=== PATIENT | male | born 1980 | race African-American/Black ===

== ENCOUNTER 2019-11-28 23:19 | Inpatient (IN) ==
[2019-11-29] MEDS ORDERED: INSULIN REGULAR DRIP 100 ML IV PRN (00:40)
[2019-11-29 01:05] LABS: ABG Base Excess -24.5 MMOL/L (-2.5-2.5); ABG HCO3 2.7 MMOL/L (20-26); ABG Oxygen Saturation 98.7 % (95-100); ABG PO2 146.2 MM HG (80-95); Allen Test Positive; Pt O2 Delivery Device Room Air
[2019-11-29 01:07] LABS: ABG PCO2 9.1 MM HG (35-48); ABG PH 7.094 (7.35-7.45)
[2019-11-29] MEDS ORDERED: SODIUM BICARBONATE 50 MEQ/50 ML VIAL IV ONE ×2 (01:18)
[2019-11-29] MEDS ORDERED: SODIUM CHLORIDE 0.9% 1,000 ML IV ONE ×2 (01:18→02:13)
[2019-11-29 01:39] LABS: Basophils % 0.3 % (0.0-0.8); Hematocrit 44.5 VOL% (42.0-52.0); Hemoglobin 14.4 GM/DL (14.0-18.0); Immature Granulocytes % 1.7 %; Immature Granulocytes Absolute 0.26 #; Lymphocytes # 2.3 10*3/uL (1.4-4.0); Lymphocytes % 15.5 % (21.2-54.2); Mean Corpuscular HGB Conc 32.4 GM/DL (32-36); Mean Corpuscular Volume 95.1 FL (87-102); Mean Platelet Volume 12.6 FL (9.6-12.0); Neutrophils % 75.5 % (38.7-73.9); Platelet Count 111 T/CUMM (130-400); Red Blood Count 4.68 MC/CUMM (3.8-5.5); Red Cell Distribution Width 12.7 % (9.3-17.3); White Blood Count 15.1 T/CUMM (4-12)
[2019-11-29 01:46] LABS: Calcium 8.4 MG/DL (8.5-10.1); Osmolality,Calculated 294.2 MOS/KG (273-304); Risk Ratio 2.92
[2019-11-29] MEDS ORDERED: DEXTROSE 50% 25 GM/50 ML VIAL IV PRN ×2 (02:13)
[2019-11-29] MEDS ORDERED: SODIUM BICARB INJ 100 MEQ in STERILE WATER INJ 400 ML IV PRN (02:13)
[2019-11-29] MEDS ORDERED: SODIUM PHOSPHATE INJ 16.3 MMOL in SODIUM CHLORIDE 0.9% 250 ML IV PRN (02:13)
[2019-11-29] MEDS ORDERED: MAGNESIUM SULF RIDER 2 GM in PREMIX 1 EACH IV PRN (02:13)
[2019-11-29] MEDS ORDERED: MAGNESIUM SULF RIDER 4 GM in PREMIX 1 EACH IV PRN (02:13)
[2019-11-29] MEDS ORDERED: INSULIN REGULAR 100 UNIT/ML IV ONE (02:30)
[2019-11-29] MEDS: SODIUM CHLORIDE 0.9% 1,000 ML IV SCH ×5 (02:36→10:50)
[2019-11-29 02:44] LABS: ABG Base Excess -19.5 MMOL/L (-2.5-2.5); ABG HCO3 10.7 MMOL/L (20-26); ABG Oxygen Saturation 99.3 % (95-100); ABG PH 7.264 (7.35-7.45); ABG TCO2 5.7 MMOL/L (23-27); Allen Test Positive
[2019-11-29 02:46] LABS: ABG PCO2 14.2 MM HG (35-48)
[2019-11-29] MEDS: ONDANSETRON 4 MG/2 ML VIAL IV PRN ×2 (04:30→11:55)
[2019-11-29] MEDS ORDERED: ONDANSETRON 4 MG/2 ML VIAL ONE (04:32)
[2019-11-29 05:31] LABS: Osmolality,Calculated 286.4 MOS/KG (273-304)
[2019-11-29 05:35] LABS: Amorphous Crystals,Urine Occasional /HPF (Few); Apearance,Urine CLEAR (Clear); Bacteria,Urine Occasional /HPF (Few); Bilirubin,Urine Negative (Negative); Blood, Urine Moderate mg/dL (Negative); Glucose,Urine (UA) >=500 mg/dL (Negative); Ketones,Urine 80 mg/dL (Negative); Mucus,Urine Occasional /LPF (Occasional); Nitrite,Urine Negative (Negative); Protein,Urine 30 MG/DL; RBC,Urine 1 /HPF (0-4); Urine Color Straw (Yellow); Urine Specific Gravity 1.018 (1.001-1.035); Urine Urobilinogen < 2.0 EU/DL (0.2-1.0); WBC,Urine 1 /HPF (0-6)
[2019-11-29 06:12] LABS: Basophils % 0.1 % (0.0-0.8); Hematocrit 39.9 VOL% (42.0-52.0); Hemoglobin 12.9 GM/DL (14.0-18.0); Immature Granulocytes % 1.1 %; Lymphocytes # 1.3 10*3/uL (1.4-4.0); Lymphocytes % 14.7 % (21.2-54.2); Mean Corpuscular HGB Conc 32.3 GM/DL (32-36); Mean Corpuscular Volume 94.5 FL (87-102); Mean Platelet Volume 12.7 FL (9.6-12.0); Monocytes % 7.5 % (1.7-12.7); Neutrophils % 76.6 % (38.7-73.9); Platelet Count 97 T/CUMM (130-400); Red Blood Count 4.22 MC/CUMM (3.8-5.5); Red Cell Distribution Width 12.6 % (9.3-17.3); White Blood Count 8.7 T/CUMM (4-12)
[2019-11-29 06:22] LABS: Burr Cells Slight; Hypochromasia Slight; Microcytosis Slight
[2019-11-29 06:24] LABS: Platelet Estimate Decreased
[2019-11-29] MEDS: DEXT 5% NACL 0.45% KCL 20 MEQ 20 MEQ/1,000 ML BAG IV SCH ×2 (08:15→12:21)
[2019-11-29 09:54] LABS: Calcium 8.3 MG/DL (8.5-10.1); Osmolality,Calculated 284.4 MOS/KG (273-304)
[2019-11-29] MEDS ORDERED: INSULIN NPH/REGULAR 70/30 100 UNIT/ML SUBCUT ONE (11:14)
[2019-11-29] MEDS: LACTATED RINGERS 1,000 ML IV SCH ×3 (11:51→21:40)
[2019-11-29 12:21] LABS: Allen Test Positive
[2019-11-29 12:22] LABS: ABG Base Excess -8.9 MMOL/L (-2.5-2.5); ABG HCO3 14.3 MMOL/L (20-26); ABG Oxygen Saturation 98.7 % (95-100); ABG PCO2 24.3 MM HG (35-48); ABG PH 7.389 (7.35-7.45); ABG PO2 148.1 MM HG (80-95); ABG TCO2 15.1 MMOL/L (23-27)
[2019-11-29] MEDS: INSULIN LISPRO 100 UNIT/ML SUBCUT SCH ×3 (12:23→21:04)
[2019-11-29] MEDS ORDERED: INSULIN NPH/REGULAR 70/30 100 UNIT/ML SUBCUT SCH (16:30)
[2019-11-29 17:46] LABS: Calcium 8.8 MG/DL (8.5-10.1); Osmolality,Calculated 285.5 MOS/KG (273-304)
[2019-11-29] MEDS: POTASSIUM CHLORIDE RIDER 10 MEQ in PREMIX 1 EACH IV PRN ×2 (18:51→23:05)
[2019-11-29] MEDS ORDERED: SODIUM CHLORIDE 0.45% 1,000 ML IV SCH (19:13)
[2019-11-30] MEDS: POTASSIUM CHLORIDE RIDER 10 MEQ in PREMIX 1 EACH IV PRN ×4 (01:05→07:46)
[2019-11-30] MEDS: INSULIN LISPRO 100 UNIT/ML SUBCUT SCH ×4 (01:15→11:15)
[2019-11-30] MEDS: LACTATED RINGERS 1,000 ML IV SCH ×2 (04:35→11:15)
[2019-11-30 04:51] LABS: Calcium 8.9 MG/DL (8.5-10.1); Osmolality,Calculated 281.3 MOS/KG (273-304)
[2019-11-30] MEDS ORDERED: INSULIN NPH/REGULAR 70/30 100 UNIT/ML SUBCUT SCH (07:30)
[2019-11-30 07:50] LABS: Hematocrit 34.9 VOL% (42.0-52.0); Hemoglobin 11.3 GM/DL (14.0-18.0); Immature Granulocytes % 0.4 %; Immature Granulocytes Absolute 0.02 #; Lymphocytes # 0.8 10*3/uL (1.4-4.0); Lymphocytes % 14.6 % (21.2-54.2); Mean Corpuscular HGB Conc 32.4 GM/DL (32-36); Mean Corpuscular Volume 93.6 FL (87-102); Mean Platelet Volume 12.4 FL (9.6-12.0); Monocytes % 9.1 % (1.7-12.7); Neutrophils % 75.9 % (38.7-73.9); Platelet Count 75 T/CUMM (130-400); Red Blood Count 3.73 MC/CUMM (3.8-5.5); Red Cell Distribution Width 12.9 % (9.3-17.3); White Blood Count 5.6 T/CUMM (4-12)
[2019-11-30 08:08] LABS: Hypochromasia Slight; Microcytosis Slight; Ovalocytes Slight; Platelet Estimate Decreased
== END 2019-11-30 15:40 | disposition home or self-care (01) | DRG 639 ==
LOC: SUATTDRO 11-29 00:26 → N.ICU 11-29 00:26
PROVIDERS: ADMIT Internal Medicine; ATTEND Internal Medicine

== ENCOUNTER 2020-06-26 12:47 | Inpatient (IN) ==
[2020-06-26] MEDS ORDERED: SODIUM CHLORIDE 0.9% 1,000 ML IV STA (13:02)
[2020-06-26 13:19] LABS: Basophils % 0.2 % (0.0-0.8); Eosinophils # 0.2 10*3/uL (0.0-0.87); Hematocrit 42.4 VOL% (42.0-52.0); Hemoglobin 12.8 GM/DL (14.0-18.0); Immature Granulocytes % 1.6 %; Immature Granulocytes Absolute 0.28 #; Lymphocytes % 5.5 % (21.2-54.2); Mean Corpuscular HGB Conc 30.2 GM/DL (32-36); Mean Platelet Volume 11.9 FL (9.6-12.0); Monocytes % 5.1 % (1.7-12.7); Neutrophils % 86.6 % (38.7-73.9); Platelet Count 207 T/CUMM (130-400); Red Blood Count 4.24 MC/CUMM (3.8-5.5); Red Cell Distribution Width 12.7 % (9.3-17.3); White Blood Count 17.9 T/CUMM (4-12)
[2020-06-26 13:43] LABS: Albumin 2.8 G/DL (3.4-5.0); Bilirubin,Total 0.4 MG/DL (0.2-1.0); Total Protein 8.1 G/DL (6.4-8.3)
[2020-06-26] MEDS ORDERED: LACTATED RINGERS 2,000 ML IV ONE (13:56)
[2020-06-26] MEDS ORDERED: INSULIN REGULAR 100 UNIT/ML IV STA (13:57)
[2020-06-26 14:01] LABS: ABG Oxygen Saturation 98.2 % (95-100)
[2020-06-26] MEDS ORDERED: ALBUTEROL 2.5 MG/3 ML NEB RESP TX PRN (14:01)
[2020-06-26] MEDS ORDERED: DEXTROSE 50% 25 GM/50 ML VIAL IV PRN (14:01)
[2020-06-26] MEDS ORDERED: GLUCAGON 1 MG VIAL IM PRN (14:01)
[2020-06-26 14:04] LABS: ABG Base Excess -31.5 MMOL/L (-2.5-2.5); ABG HCO3 4.6 MMOL/L (20-26); ABG TCO2 8.7 MMOL/L (23-27)
[2020-06-26 14:06] LABS: ABG PCO2 8.7 MM HG (35-48); ABG PH 6.903 (7.35-7.45)
[2020-06-26 15:30] LABS: Bilirubin,Urine Negative (Negative); Blood, Urine Moderate mg/dL (Negative); Glucose,Urine (UA) >=500 mg/dL (Negative); Ketones,Urine 80 mg/dL (Negative); Mucus,Urine Occasional /LPF (Occasional); Nitrite,Urine Negative (Negative); Protein,Urine 30 MG/DL; RBC,Urine 13 /HPF (0-4); Squamous Epithelial Cell,Urine Occasional /HPF (0-10); Urine Appearance CLEAR (Clear); Urine Color Straw (Yellow); Urine Specific Gravity 1.017 (1.001-1.035); Urine Urobilinogen < 2.0 EU/DL (0.2-1.0); WBC,Urine <1 /HPF (0-6)
[2020-06-26] MEDS: INSULIN NPH/REGULAR 70/30 100 UNIT/ML SUBCUT SCH (15:37)
[2020-06-26] MEDS: FAMOTIDINE 20 MG/2 ML VIAL IV SCH (15:37)
[2020-06-26] MEDS: INSULIN REGULAR DRIP 100 ML IV PRN (15:38)
[2020-06-26] MEDS: DEXTROSE 5% LACTATED RINGERS 1,000 ML IV SCH ×2 (17:07→23:43)
[2020-06-26] MEDS ORDERED: INSULIN REGULAR 100 UNIT/ML IV ONE ×3 (18:07→22:09)
[2020-06-26 18:23] LABS: Calcium 8.9 MG/DL (8.5-10.1)
[2020-06-26] MEDS: ENOXAPARIN 40 MG/0.4 ML SYRINGE SUBCUT SCH (20:20)
[2020-06-27] MEDS ORDERED: INSULIN REGULAR 100 UNIT/ML IV ONE ×2 (00:22→01:33)
[2020-06-27 01:07] LABS: Calcium 8.7 MG/DL (8.5-10.1); Osmolality,Calculated 279.8 MOS/KG (273-304)
[2020-06-27 01:17] LABS: Risk Ratio 1.84; Thyroid Stimulating Hormone 0.412 uIU/ml (0.358-3.74); VLDL CHOLESTEROL 16.8 MG/DL
[2020-06-27] MEDS: POTASSIUM CHLORIDE RIDER 10 MEQ in PREMIX 1 EACH IV PRN ×5 (01:40→14:56)
[2020-06-27] MEDS: INSULIN REGULAR DRIP 100 ML IV PRN (03:27)
[2020-06-27] MEDS: FAMOTIDINE 20 MG/2 ML VIAL IV SCH (03:39)
[2020-06-27 06:56] LABS: Osmolality,Calculated 277.5 MOS/KG (273-304)
[2020-06-27] MEDS: DEXTROSE 5% LACTATED RINGERS 1,000 ML IV SCH (07:03)
[2020-06-27] MEDS: INSULIN NPH/REGULAR 70/30 100 UNIT/ML SUBCUT SCH ×3 (07:55→15:42)
[2020-06-27] MEDS: PANTOPRAZOLE 40 MG TABLET PO SCH (08:42)
[2020-06-27] MEDS: DEXT 5% LACT RING KCL 20 MEQ 20 MEQ/1,000 ML BAG IV SCH (12:37)
[2020-06-27 13:04] LABS: Calcium 9.1 MG/DL (8.5-10.1); Osmolality,Calculated 275.5 MOS/KG (273-304)
[2020-06-27] MEDS ORDERED: INSULIN LISPRO 100 UNIT/ML SUBCUT SCH (14:00)
[2020-06-27] MEDS: INSULIN LISPRO 100 UNIT/ML SUBCUT SCH ×2 (15:42→20:44)
[2020-06-27 19:01] LABS: Calcium 8.7 MG/DL (8.5-10.1); Osmolality,Calculated 297.8 MOS/KG (273-304)
[2020-06-27] MEDS: ENOXAPARIN 40 MG/0.4 ML SYRINGE SUBCUT SCH (20:44)
[2020-06-27 22:30] LABS: Calcium 8.9 MG/DL (8.5-10.1)
[2020-06-28] MEDS: INSULIN LISPRO 100 UNIT/ML SUBCUT SCH ×6 (00:02→20:22)
[2020-06-28] MEDS: POTASSIUM CHLORIDE RIDER 10 MEQ in PREMIX 1 EACH IV PRN ×4 (01:44→05:18)
[2020-06-28] MEDS: DEXT 5% LACT RING KCL 20 MEQ 20 MEQ/1,000 ML BAG IV SCH ×4 (02:11→16:43)
[2020-06-28] MEDS: ONDANSETRON 4 MG/2 ML VIAL IV PRN ×3 (05:14→16:42)
[2020-06-28 06:16] LABS: Basophils % 0.1 % (0.0-0.8); Eosinophils % 0.1 % (0.00-10.9); Hematocrit 32.4 VOL% (42.0-52.0); Immature Granulocytes % 1.4 %; Immature Granulocytes Absolute 0.11 #; Lymphocytes # 0.7 10*3/uL (1.4-4.0); Lymphocytes % 8.6 % (21.2-54.2); Mean Corpuscular Volume 88.3 FL (87-102); Mean Platelet Volume 11.6 FL (9.6-12.0); Monocytes % 9.7 % (1.7-12.7); Neutrophils % 80.1 % (38.7-73.9); Red Blood Count 3.67 MC/CUMM (3.8-5.5); Red Cell Distribution Width 12.8 % (9.3-17.3)
[2020-06-28 06:21] LABS: White Blood Count 7.9 T/CUMM (4-12)
[2020-06-28 06:22] LABS: Platelet Count 113 T/CUMM (130-400)
[2020-06-28 06:34] LABS: Osmolality,Calculated 276.8 MOS/KG (273-304)
[2020-06-28] MEDS: VANCOMYCIN INJ 1,250 MG in SODIUM CHLORIDE 0.9% 250 ML IV SCH ×2 (06:35→17:35)
[2020-06-28 06:37] LABS: Hypochromasia 1+; Microcytosis Slight; Platelet Estimate Decreased
[2020-06-28] MEDS: ACETAMINOPHEN 325 MG TABLET PO PRN ×3 (07:56→20:26)
[2020-06-28] MEDS: POTASSIUM CHLORIDE 20 MEQ TABLET PO PRN ×4 (07:57→14:46)
[2020-06-28] MEDS: INSULIN NPH/REGULAR 70/30 100 UNIT/ML SUBCUT SCH ×2 (09:14→16:42)
[2020-06-28] MEDS: PANTOPRAZOLE 40 MG TABLET PO SCH (09:14)
[2020-06-28] MEDS: PIPERACILLIN/TAZOBACTAM 3,375 MG in SODIUM CHLORIDE 0.9% 100 ML IV SCH ×2 (11:40→22:00)
[2020-06-29] MEDS: DEXT 5% LACT RING KCL 20 MEQ 20 MEQ/1,000 ML BAG IV SCH ×5 (00:34→17:48)
[2020-06-29] MEDS: PIPERACILLIN/TAZOBACTAM 3,375 MG in SODIUM CHLORIDE 0.9% 100 ML IV SCH ×3 (04:29→20:41)
[2020-06-29] MEDS: INSULIN LISPRO 100 UNIT/ML SUBCUT SCH ×7 (04:29→23:46)
[2020-06-29] MEDS: VANCOMYCIN INJ 1,250 MG in SODIUM CHLORIDE 0.9% 250 ML IV SCH ×2 (05:51→17:31)
[2020-06-29 06:00] LABS: Basophils % 0.2 % (0.0-0.8); Eosinophils % 0.1 % (0.00-10.9); Hemoglobin 10.4 GM/DL (14.0-18.0); Immature Granulocytes % 1.8 %; Immature Granulocytes Absolute 0.17 #; Lymphocytes # 0.9 10*3/uL (1.4-4.0); Lymphocytes % 9.4 % (21.2-54.2); Mean Corpuscular HGB Conc 33.5 GM/DL (32-36); Mean Corpuscular Volume 89.6 FL (87-102); Monocytes % 5.9 % (1.7-12.7); Neutrophils % 82.6 % (38.7-73.9); Platelet Count 122 T/CUMM (130-400); Red Blood Count 3.46 MC/CUMM (3.8-5.5); Red Cell Distribution Width 13.2 % (9.3-17.3); White Blood Count 9.3 T/CUMM (4-12)
[2020-06-29 06:29] LABS: Calcium 8.7 MG/DL (8.5-10.1); Osmolality,Calculated 286.3 MOS/KG (273-304)
[2020-06-29 06:30] LABS: Band Neutrophils 4 % (0-10); Hypochromasia 1+; Lymphocytes 13 % (20-55); Microcytosis 1+; Platelet Estimate Normal; Segmented Neutrophils 77 % (50-85); Total Cells Counted 100
[2020-06-29 06:31] LABS: Ovalocytes Slight
[2020-06-29] MEDS: INSULIN NPH/REGULAR 70/30 100 UNIT/ML SUBCUT SCH ×2 (08:08→16:30)
[2020-06-29] MEDS: PANTOPRAZOLE 40 MG TABLET PO SCH (08:09)
[2020-06-29] MEDS: ONDANSETRON 4 MG/2 ML VIAL IV PRN (11:12)
[2020-06-29] MEDS: FONDAPARINUX 2.5 MG/0.5 ML SYRINGE SUBCUT SCH (20:47)
[2020-06-29] MEDS: DOCUSATE SODIUM 100 MG CAPSULE PO SCH (20:47)
[2020-06-29] MEDS: POLYETHYLENE GLYCOL POWDER 17 GM PACK PO SCH (20:47)
[2020-06-30] MEDS: DEXT 5% LACT RING KCL 20 MEQ 20 MEQ/1,000 ML BAG IV SCH ×4 (01:33→21:00)
[2020-06-30] MEDS: PIPERACILLIN/TAZOBACTAM 3,375 MG in SODIUM CHLORIDE 0.9% 100 ML IV SCH (03:41)
[2020-06-30] MEDS: INSULIN LISPRO 100 UNIT/ML SUBCUT SCH ×5 (03:51→21:03)
[2020-06-30] MEDS: VANCOMYCIN INJ 1,250 MG in SODIUM CHLORIDE 0.9% 250 ML IV SCH ×2 (05:34→18:15)
[2020-06-30 05:50] LABS: Basophils % 0.4 % (0.0-0.8); Eosinophils # 0.1 10*3/uL (0.0-0.87); Hematocrit 28.9 VOL% (42.0-52.0); Hemoglobin 9.7 GM/DL (14.0-18.0); Immature Granulocytes % 0.7 %; Immature Granulocytes Absolute 0.06 #; Lymphocytes # 0.8 10*3/uL (1.4-4.0); Lymphocytes % 9.9 % (21.2-54.2); Mean Corpuscular HGB Conc 33.6 GM/DL (32-36); Mean Corpuscular Volume 91.2 FL (87-102); Mean Platelet Volume 11.2 FL (9.6-12.0); Platelet Count 118 T/CUMM (130-400); Red Blood Count 3.17 MC/CUMM (3.8-5.5); Red Cell Distribution Width 13.5 % (9.3-17.3); White Blood Count 8.1 T/CUMM (4-12)
[2020-06-30 06:09] LABS: Hypochromasia Slight
[2020-06-30 06:10] LABS: Microcytosis Slight; Platelet Estimate Adequate
[2020-06-30] MEDS: INSULIN NPH/REGULAR 70/30 100 UNIT/ML SUBCUT SCH ×2 (08:08→16:53)
[2020-06-30] MEDS ORDERED: MIDAZOLAM 2 MG/2 ML VIAL ONE (08:54)
[2020-06-30] MEDS ORDERED: LIDOCAINE 2% 5 ML VIAL ONE (08:55)
[2020-06-30] MEDS ORDERED: propofoL 200 MG/20 ML VIAL IV ONE (08:55)
[2020-06-30] MEDS ORDERED: ONDANSETRON 4 MG/2 ML VIAL ONE (09:12)
[2020-06-30] MEDS ORDERED: KETOROLAC 30 MG/1 ML VIAL ONE (09:12)
[2020-06-30] MEDS ORDERED: fentaNYL 100 MCG/2 ML VIAL ONE (09:14)
[2020-06-30] MEDS ORDERED: PHENYLEPHRINE 10 MG/1 ML VIAL IV ONE (09:19)
[2020-06-30] MEDS ORDERED: SEVOFLURANE 1 UNIT/15 MINUTE INH ONE (09:34)
[2020-06-30] MEDS: DOCUSATE SODIUM 100 MG CAPSULE PO SCH ×2 (12:23→20:59)
[2020-06-30] MEDS: POLYETHYLENE GLYCOL POWDER 17 GM PACK PO SCH ×2 (12:23→20:58)
[2020-06-30] MEDS: MULTIVITAMIN (BEROCCA) TABLET PO SCH (12:23)
[2020-06-30] MEDS: cefTRIAXone 2,000 MG in SYRINGE 1 EACH IV SCH (15:46)
[2020-06-30] MEDS: FONDAPARINUX 2.5 MG/0.5 ML SYRINGE SUBCUT SCH (20:58)
[2020-07-01] MEDS: INSULIN LISPRO 100 UNIT/ML SUBCUT SCH ×3 (00:06→13:36)
[2020-07-01] MEDS: DEXT 5% LACT RING KCL 20 MEQ 20 MEQ/1,000 ML BAG IV SCH ×4 (03:56→19:30)
[2020-07-01 05:42] LABS: Basophils % 0.3 % (0.0-0.8); Eosinophils # 0.1 10*3/uL (0.0-0.87); Eosinophils % 1.9 % (0.00-10.9); Hematocrit 29.2 VOL% (42.0-52.0); Hemoglobin 9.6 GM/DL (14.0-18.0); Immature Granulocytes % 0.7 %; Immature Granulocytes Absolute 0.04 #; Lymphocytes # 1.1 10*3/uL (1.4-4.0); Lymphocytes % 19.4 % (21.2-54.2); Mean Corpuscular HGB Conc 32.9 GM/DL (32-36); Mean Platelet Volume 11.5 FL (9.6-12.0); Monocytes % 11.2 % (1.7-12.7); Neutrophils % 66.5 % (38.7-73.9); Platelet Count 136 T/CUMM (130-400); Red Blood Count 3.14 MC/CUMM (3.8-5.5); Red Cell Distribution Width 13.6 % (9.3-17.3); White Blood Count 5.9 T/CUMM (4-12)
[2020-07-01 05:57] LABS: Calcium 8.2 MG/DL (8.5-10.1); Osmolality,Calculated 286.1 MOS/KG (273-304)
[2020-07-01 06:05] LABS: Eosinophils 1 % (0-10); Lymphocytes 15 % (20-55); Nucleated Red Blood Cells 4 (0-5); Platelet Estimate Normal; Segmented Neutrophils 71 % (50-85); Total Cells Counted 100
[2020-07-01] MEDS: VANCOMYCIN INJ 1,250 MG in SODIUM CHLORIDE 0.9% 250 ML IV SCH (06:44)
[2020-07-01] MEDS: INSULIN NPH/REGULAR 70/30 100 UNIT/ML SUBCUT SCH ×2 (11:33→16:54)
[2020-07-01] MEDS: DOCUSATE SODIUM 100 MG CAPSULE PO SCH ×2 (12:19→22:29)
[2020-07-01] MEDS: POLYETHYLENE GLYCOL POWDER 17 GM PACK PO SCH ×2 (12:19→22:30)
[2020-07-01] MEDS: MULTIVITAMIN (BEROCCA) TABLET PO SCH (12:33)
[2020-07-01] MEDS: INSULIN REGULAR 100 UNIT/ML SUBCUT SCH ×3 (12:33→22:30)
[2020-07-01] MEDS: cefTRIAXone 2,000 MG in SYRINGE 1 EACH IV SCH (12:33)
[2020-07-01] MEDS: SODIUM HYPOCHLORITE 0.25% IRRIG 473 ML BOTTLE TOP SCH (12:34)
[2020-07-02] MEDS: DEXT 5% LACT RING KCL 20 MEQ 20 MEQ/1,000 ML BAG IV SCH ×2 (02:09→12:37)
[2020-07-02 05:54] LABS: Basophils % 0.6 % (0.0-0.8); Eosinophils # 0.1 10*3/uL (0.0-0.87); Eosinophils % 2.4 % (0.00-10.9); Hematocrit 29.6 VOL% (42.0-52.0); Hemoglobin 9.5 GM/DL (14.0-18.0); Immature Granulocytes % 0.6 %; Immature Granulocytes Absolute 0.03 #; Lymphocytes # 1.4 10*3/uL (1.4-4.0); Lymphocytes % 28.6 % (21.2-54.2); Mean Corpuscular HGB Conc 32.1 GM/DL (32-36); Mean Corpuscular Volume 92.5 FL (87-102); Mean Platelet Volume 10.7 FL (9.6-12.0); Monocytes % 12.9 % (1.7-12.7); Neutrophils % 54.9 % (38.7-73.9); Platelet Count 175 T/CUMM (130-400); Red Cell Distribution Width 13.6 % (9.3-17.3)
[2020-07-02 06:14] LABS: Hypochromasia 1+; Microcytosis 1+; Platelet Estimate Adequate
[2020-07-02 06:43] LABS: Calcium 8.2 MG/DL (8.5-10.1); Osmolality,Calculated 290.3 MOS/KG (273-304)
[2020-07-02] MEDS ORDERED: fentaNYL 100 MCG/2 ML VIAL ONE (09:03)
[2020-07-02] MEDS ORDERED: MIDAZOLAM 2 MG/2 ML VIAL ONE (09:03)
[2020-07-02] MEDS ORDERED: ceFAZolin 1,000 MG VIAL ONE (09:53)
[2020-07-02] MEDS ORDERED: LIDOCAINE 2% 5 ML VIAL ONE (10:15)
[2020-07-02] MEDS ORDERED: ONDANSETRON 4 MG/2 ML VIAL ONE (10:15)
[2020-07-02] MEDS ORDERED: propofoL 200 MG/20 ML VIAL IV ONE (10:15)
[2020-07-02] MEDS: INSULIN NPH/REGULAR 70/30 100 UNIT/ML SUBCUT SCH ×2 (12:21→17:42)
[2020-07-02] MEDS: INSULIN REGULAR 100 UNIT/ML SUBCUT SCH ×4 (12:22→21:14)
[2020-07-02] MEDS: MULTIVITAMIN (BEROCCA) TABLET PO SCH (12:23)
[2020-07-02] MEDS: POLYETHYLENE GLYCOL POWDER 17 GM PACK PO SCH ×2 (12:23→21:13)
[2020-07-02] MEDS: DOCUSATE SODIUM 100 MG CAPSULE PO SCH ×2 (12:23→21:14)
[2020-07-02] MEDS: SODIUM HYPOCHLORITE 0.25% IRRIG 473 ML BOTTLE TOP SCH (12:24)
[2020-07-02] MEDS: cefTRIAXone 2,000 MG in SYRINGE 1 EACH IV SCH (12:24)
[2020-07-03 04:52] LABS: Basophils % 0.4 % (0.0-0.8); Eosinophils # 0.1 10*3/uL (0.0-0.87); Eosinophils % 2.5 % (0.00-10.9); Hematocrit 28.8 VOL% (42.0-52.0); Immature Granulocytes % 0.5 %; Immature Granulocytes Absolute 0.03 #; Lymphocytes # 1.4 10*3/uL (1.4-4.0); Lymphocytes % 25.1 % (21.2-54.2); Mean Corpuscular HGB Conc 31.3 GM/DL (32-36); Mean Corpuscular Volume 94.7 FL (87-102); Mean Platelet Volume 10.7 FL (9.6-12.0); Monocytes % 12.5 % (1.7-12.7); Platelet Count 177 T/CUMM (130-400); Red Blood Count 3.04 MC/CUMM (3.8-5.5); Red Cell Distribution Width 13.3 % (9.3-17.3); White Blood Count 5.6 T/CUMM (4-12)
[2020-07-03 05:05] LABS: Calcium 8.1 MG/DL (8.5-10.1)
[2020-07-03 05:19] LABS: Eosinophils 1 % (0-10); Hypochromasia 1+; Lymphocytes 28 % (20-55); Microcytosis 1+; Ovalocytes Slight; Platelet Estimate Adequate; Segmented Neutrophils 59 % (50-85); Total Cells Counted 100
[2020-07-03] MEDS: POTASSIUM CHLORIDE 20 MEQ TABLET PO PRN ×3 (05:40→12:29)
[2020-07-03] MEDS: INSULIN REGULAR 100 UNIT/ML SUBCUT SCH ×2 (09:19→12:13)
[2020-07-03] MEDS: INSULIN NPH/REGULAR 70/30 100 UNIT/ML SUBCUT SCH (09:20)
[2020-07-03] MEDS: DOCUSATE SODIUM 100 MG CAPSULE PO SCH (09:21)
[2020-07-03] MEDS: MULTIVITAMIN (BEROCCA) TABLET PO SCH (09:21)
[2020-07-03] MEDS: cefTRIAXone 2,000 MG in SYRINGE 1 EACH IV SCH (09:22)
[2020-07-03] MEDS: POLYETHYLENE GLYCOL POWDER 17 GM PACK PO SCH (09:22)
[2020-07-03 11:54] VITALS: BP 116/74
[2020-07-03] MEDS ORDERED: PHENYLEPHRINE 1 MG/10 ML SYRINGE IV ONE (11:57)
[2020-07-03] MEDS: SODIUM HYPOCHLORITE 0.25% IRRIG 473 ML BOTTLE TOP SCH (12:29)
== END 2020-07-03 14:26 | disposition home health service (06) | DRG 617 ==
LOC: N.ED 12:47 → SUATTDRO 13:56 → N.EDINP 13:56 → N.CC 14:35 → N.5E 06-27 16:09
PROVIDERS: ADMIT Internal Medicine; ATTEND Family Medicine

== ENCOUNTER 2020-08-20 00:13 | Inpatient (IN) ==
[2020-08-20] MEDS ORDERED: ONDANSETRON 4 MG/2 ML VIAL IV STA (00:38)
[2020-08-20] MEDS ORDERED: SODIUM CHLORIDE 0.9% 1,000 ML IV STA (00:38)
[2020-08-20] MEDS ORDERED: SODIUM BICARBONATE 50 MEQ/50 ML VIAL IV STA (00:53)
[2020-08-20 01:06] LABS: Albumin 2.7 G/DL (3.4-5.0); Bilirubin,Total 0.6 MG/DL (0.2-1.0); Calcium 10.2 MG/DL (8.5-10.1); Osmolality,Calculated 292.5 MOS/KG (273-304); Potassium 4.6 MMOL/L (3.5-5.1); Total Protein 9.4 G/DL (6.4-8.3)
[2020-08-20 01:13] LABS: Amylase 26 U/L (25-115); Troponin I < 0.015 NG/ML (0.00-0.045)
[2020-08-20] MEDS ORDERED: INSULIN REGULAR 100 UNIT/ML IV STA (01:17)
[2020-08-20 01:20] LABS: Basophils % 0.2 % (0.0-0.8); Hematocrit 37.5 VOL% (42.0-52.0); Hemoglobin 10.9 GM/DL (14.0-18.0); Immature Granulocytes % 3.1 %; Immature Granulocytes Absolute 0.53 #; Lymphocytes # 0.7 10*3/uL (1.4-4.0); Lymphocytes % 4.1 % (21.2-54.2); Mean Corpuscular HGB Conc 29.1 GM/DL (32-36); Mean Corpuscular Volume 101.6 FL (87-102); Mean Platelet Volume 12.3 FL (9.6-12.0); Monocytes % 6.3 % (1.7-12.7); Neutrophils % 86.3 % (38.7-73.9); Platelet Count 239 T/CUMM (130-400); Red Blood Count 3.69 MC/CUMM (3.8-5.5); Red Cell Distribution Width 12.6 % (9.3-17.3)
[2020-08-20] MEDS ORDERED: INSULIN REGULAR DRIP 100 ML IV PRN (01:25)
[2020-08-20] MEDS ORDERED: MAGNESIUM SULF RIDER 4 GM in PREMIX 1 EACH IV PRN (01:40)
[2020-08-20] MEDS ORDERED: SODIUM PHOSPHATE IV PRN (01:40)
[2020-08-20] MEDS ORDERED: SODIUM CHLORIDE 0.9% IV PRN (01:40)
[2020-08-20] MEDS ORDERED: SODIUM CHLORIDE 0.9% 1,000 ML IV ONE (01:40)
[2020-08-20] MEDS ORDERED: SODIUM BICARB INJ 100 MEQ in STERILE WATER INJ 400 ML IV PRN (01:40)
[2020-08-20] MEDS ORDERED: DEXTROSE 50% 25 GM/50 ML VIAL IV PRN ×3 (01:40→16:27)
[2020-08-20] MEDS ORDERED: MAGNESIUM SULF RIDER 2 GM in PREMIX 1 EACH IV PRN (01:40)
[2020-08-20] MEDS ORDERED: INSULIN REGULAR 100 UNIT/ML IV ONE (01:40)
[2020-08-20] MEDS ORDERED: INSULIN REGULAR DRIP 100 ML IV SCH (02:00)
[2020-08-20 02:46] LABS: ABG Base Excess -22.3 MMOL/L (-2.5-2.5); ABG HCO3 8.5 MMOL/L (20-26); ABG Oxygen Saturation 98.8 % (95-100); ABG PH 7.236 (7.35-7.45); ABG TCO2 4.1 MMOL/L (23-27); Allen Test Positive; Pt O2 Delivery Device Room Air
[2020-08-20 02:47] LABS: ABG PCO2 10.5 MM HG (35-48)
[2020-08-20 03:15] LABS: Band Neutrophils 10 % (0-10); Lymphocytes 6 % (20-55); Platelet Estimate Normal; Segmented Neutrophils 78 % (50-85); Total Cells Counted 100
[2020-08-20 04:11] LABS: Basophils % 0.1 % (0.0-0.8); Hematocrit 30.3 VOL% (42.0-52.0); Hemoglobin 9.2 GM/DL (14.0-18.0); Immature Granulocytes % 6.8 %; Lymphocytes # 0.8 10*3/uL (1.4-4.0); Mean Corpuscular HGB Conc 30.4 GM/DL (32-36); Mean Corpuscular Volume 97.1 FL (87-102); Mean Platelet Volume 11.2 FL (9.6-12.0); Monocytes % 5.5 % (1.7-12.7); Neutrophils % 82.6 % (38.7-73.9); Platelet Count 229 T/CUMM (130-400); Red Blood Count 3.12 MC/CUMM (3.8-5.5); Red Cell Distribution Width 12.6 % (9.3-17.3); White Blood Count 16.1 T/CUMM (4-12)
[2020-08-20] MEDS ORDERED: SODIUM CHLORIDE 0.9% 1,000 ML IV SCH (04:15)
[2020-08-20] MEDS: SODIUM CHLORIDE 0.9% 1,000 ML IV SCH ×2 (04:19→06:03)
[2020-08-20 04:24] LABS: ABG HCO3 13.6 MMOL/L (20-26); ABG Oxygen Saturation 97.4 % (95-100); ABG PH 7.345 (7.35-7.45); ABG PO2 89.9 MM HG (80-95); ABG TCO2 9.6 MMOL/L (23-27); Allen Test Positive; Pt O2 Delivery Device Room Air
[2020-08-20 04:37] LABS: Band Neutrophils 8 % (0-10); Lymphocytes 5 % (20-55); Segmented Neutrophils 82 % (50-85); Total Cells Counted 100
[2020-08-20 04:39] LABS: Macrocytosis Slight; Platelet Estimate Normal
[2020-08-20 04:40] LABS: Calcium 9.4 MG/DL (8.5-10.1); Osmolality,Calculated 294.7 MOS/KG (273-304); Potassium 3.8 MMOL/L (3.5-5.1)
[2020-08-20 04:56] LABS: Bacteria,Urine Occasional /HPF (Few); Bilirubin,Urine Negative (Negative); Blood, Urine Small mg/dL (Negative); Glucose,Urine (UA) >=500 mg/dL (Negative); Ketones,Urine 80 mg/dL (Negative); Mucus,Urine Occasional /LPF (Occasional); Nitrite,Urine Negative (Negative); Protein,Urine 30 MG/DL; RBC,Urine 2 /HPF (0-4); Urine Appearance CLEAR (Clear); Urine Color Straw (Yellow); Urine Specific Gravity 1.018 (1.001-1.035); Urine Urobilinogen < 2.0 EU/DL (0.2-1.0)
[2020-08-20 05:05] LABS: Barbiturates Screen,Urine Negative (Negative); Benzodiazepines Screen,Urine Negative (Negative); Cannabinoid Screen,Urine Negative (Negative); Opiate Screen,Urine Negative (Negative); Phencyclidine Screen,Urine Negative (Negative)
[2020-08-20] MEDS ORDERED: ONDANSETRON 4 MG/2 ML VIAL ONE (06:45)
[2020-08-20] MEDS: ONDANSETRON 4 MG/2 ML VIAL IV PRN (06:48)
[2020-08-20] MEDS: INSULIN NPH/REGULAR 70/30 100 UNIT/ML SUBCUT SCH ×2 (10:08→17:47)
[2020-08-20] MEDS: ENOXAPARIN 40 MG/0.4 ML SYRINGE SUBCUT SCH (10:09)
[2020-08-20] MEDS: PANTOPRAZOLE 40 MG TABLET PO SCH (10:09)
[2020-08-20 11:17] LABS: Calcium 9.5 MG/DL (8.5-10.1); Osmolality,Calculated 298.1 MOS/KG (273-304); Potassium 3.8 MMOL/L (3.5-5.1)
[2020-08-20] MEDS: DEXTROSE 5% LACTATED RINGERS 1,000 ML IV SCH ×2 (12:56→23:05)
[2020-08-20] MEDS ORDERED: GLUCAGON 1 MG VIAL IM PRN (16:27)
[2020-08-20] MEDS ORDERED: INFLUENZA VIRUS VACCINE 0.5 ML SYRINGE IM ONE (17:09)
[2020-08-20] MEDS ORDERED: PNEUMOCOCCAL VACCINE (13 VALENT) 0.5 ML SYRINGE IM ONE (17:09)
[2020-08-20] MEDS: SODIUM HYPOCHLORITE 0.25% IRRIG 473 ML BOTTLE TOP SCH (17:10)
[2020-08-20 17:16] LABS: Calcium 9.7 MG/DL (8.5-10.1); Osmolality,Calculated 287.1 MOS/KG (273-304); Potassium 3.4 MMOL/L (3.5-5.1)
[2020-08-20] MEDS: INSULIN LISPRO 100 UNIT/ML SUBCUT SCH ×2 (17:48→21:15)
[2020-08-20] MEDS ORDERED: SODIUM CHLORIDE 0.45% 1,000 ML IV SCH (18:40)
[2020-08-20 23:00] LABS: Calcium 9.6 MG/DL (8.5-10.1); Osmolality,Calculated 296.3 MOS/KG (273-304); Potassium 3.4 MMOL/L (3.5-5.1)
[2020-08-21] MEDS: INSULIN LISPRO 100 UNIT/ML SUBCUT SCH ×6 (02:15→21:44)
[2020-08-21] MEDS: ACETAMINOPHEN 325 MG TABLET PO PRN (03:55)
[2020-08-21 05:07] LABS: Calcium 9.7 MG/DL (8.5-10.1); Osmolality,Calculated 290.7 MOS/KG (273-304)
[2020-08-21] MEDS: LACTATED RINGERS 1,000 ML IV SCH ×2 (05:55→19:28)
[2020-08-21] MEDS: INSULIN NPH/REGULAR 70/30 100 UNIT/ML SUBCUT SCH ×2 (08:25→16:14)
[2020-08-21] MEDS: POTASSIUM CHLORIDE RIDER 10 MEQ in PREMIX 1 EACH IV PRN ×3 (08:25→17:39)
[2020-08-21] MEDS: SODIUM HYPOCHLORITE 0.25% IRRIG 473 ML BOTTLE TOP SCH (08:26)
[2020-08-21] MEDS: ENOXAPARIN 40 MG/0.4 ML SYRINGE SUBCUT SCH (08:26)
[2020-08-21] MEDS: PANTOPRAZOLE 40 MG TABLET PO SCH (08:26)
[2020-08-21] MEDS: POTASSIUM CHLORIDE 20 MEQ TABLET PO SCH ×4 (09:42→21:44)
[2020-08-21 10:03] LABS: Calcium 9.6 MG/DL (8.5-10.1); Osmolality,Calculated 282.7 MOS/KG (273-304)
[2020-08-21] MEDS: ceFAZolin 2,000 MG in PREMIX 1 EACH IV SCH ×2 (13:00→21:44)
[2020-08-21] MEDS: ONDANSETRON 4 MG/2 ML VIAL IV PRN (16:13)
[2020-08-21] MEDS ORDERED: SIMETHICONE CHEW 125 MG TABLET PO PRN (19:34)
[2020-08-22] MEDS: LACTATED RINGERS 1,000 ML IV SCH ×2 (00:43→09:36)
[2020-08-22] MEDS: INSULIN LISPRO 100 UNIT/ML SUBCUT SCH ×6 (00:43→21:34)
[2020-08-22] MEDS: ACETAMINOPHEN 325 MG TABLET PO PRN (00:45)
[2020-08-22] MEDS: POTASSIUM CHLORIDE 20 MEQ TABLET PO SCH (01:08)
[2020-08-22] MEDS: ceFAZolin 2,000 MG in PREMIX 1 EACH IV SCH ×4 (02:28→21:35)
[2020-08-22 06:14] LABS: Calcium 9.3 MG/DL (8.5-10.1); Osmolality,Calculated 282.5 MOS/KG (273-304); Potassium 2.7 MMOL/L (3.5-5.1)
[2020-08-22] MEDS: POTASSIUM CHLORIDE RIDER 10 MEQ in PREMIX 1 EACH IV PRN (06:34)
[2020-08-22] MEDS: INSULIN NPH/REGULAR 70/30 100 UNIT/ML SUBCUT SCH ×2 (08:51→15:55)
[2020-08-22] MEDS: ENOXAPARIN 40 MG/0.4 ML SYRINGE SUBCUT SCH (08:52)
[2020-08-22] MEDS: PANTOPRAZOLE 40 MG TABLET PO SCH (08:52)
[2020-08-22] MEDS: SODIUM HYPOCHLORITE 0.25% IRRIG 473 ML BOTTLE TOP SCH (10:34)
[2020-08-22] MEDS: SODIUM CHLOR 0.9% KCL 40 MEQ 40 MEQ/1,000 ML BAG IV SCH ×2 (10:48→21:37)
[2020-08-23] MEDS: INSULIN LISPRO 100 UNIT/ML SUBCUT SCH ×6 (00:55→21:21)
[2020-08-23] MEDS: ceFAZolin 2,000 MG in PREMIX 1 EACH IV SCH ×4 (03:55→21:25)
[2020-08-23 05:17] LABS: Basophils % 0.3 % (0.0-0.8); Eosinophils # 0.1 10*3/uL (0.0-0.87); Eosinophils % 0.5 % (0.00-10.9); Hematocrit 26.9 VOL% (42.0-52.0); Hemoglobin 8.1 GM/DL (14.0-18.0); Immature Granulocytes Absolute 0.28 #; Lymphocytes # 1.5 10*3/uL (1.4-4.0); Mean Corpuscular HGB Conc 30.1 GM/DL (32-36); Mean Corpuscular Volume 95.1 FL (87-102); Monocytes % 7.2 % (1.7-12.7); Platelet Count 197 T/CUMM (130-400); Red Blood Count 2.83 MC/CUMM (3.8-5.5); Red Cell Distribution Width 12.9 % (9.3-17.3); White Blood Count 13.9 T/CUMM (4-12)
[2020-08-23 05:37] LABS: Calcium 8.8 MG/DL (8.5-10.1); Osmolality,Calculated 276.5 MOS/KG (273-304)
[2020-08-23 05:58] LABS: Band Neutrophils 8 % (0-10); Eosinophils 1 % (0-10); Hypochromasia 1+; Lymphocytes 7 % (20-55); Microcytosis 1+; Platelet Estimate Adequate; Segmented Neutrophils 81 % (50-85); Total Cells Counted 100
[2020-08-23] MEDS: SODIUM CHLOR 0.9% KCL 40 MEQ 40 MEQ/1,000 ML BAG IV SCH (08:18)
[2020-08-23 09:00] LABS: % Iron Saturation 9.6 % (18-50); Ferritin 1532.1 ng/ml (26-388)
[2020-08-23] MEDS ORDERED: POTASSIUM CHLORIDE 20 MEQ TABLET PO SCH (09:00)
[2020-08-23] MEDS: INSULIN NPH/REGULAR 70/30 100 UNIT/ML SUBCUT SCH ×2 (09:08→17:03)
[2020-08-23] MEDS: PANTOPRAZOLE 40 MG TABLET PO SCH (09:10)
[2020-08-23] MEDS: ENOXAPARIN 40 MG/0.4 ML SYRINGE SUBCUT SCH (09:10)
[2020-08-23 09:30] LABS: Folate 17.4 NG/ML (5.38-24.0)
[2020-08-23] MEDS: SODIUM HYPOCHLORITE 0.25% IRRIG 473 ML BOTTLE TOP SCH (10:02)
[2020-08-23] MEDS: POTASSIUM CHLORIDE 20 MEQ PACK PO SCH ×2 (11:27→21:21)
[2020-08-23] MEDS: FERRIC GLUCONATE COMPLEX 125 MG in SODIUM CHLORIDE 0.9% 100 ML IV SCH (13:42)
[2020-08-24] MEDS: INSULIN LISPRO 100 UNIT/ML SUBCUT SCH ×6 (01:03→21:45)
[2020-08-24] MEDS: ceFAZolin 2,000 MG in PREMIX 1 EACH IV SCH ×4 (03:48→21:47)
[2020-08-24 06:16] LABS: Basophils % 0.2 % (0.0-0.8); Eosinophils # 0.2 10*3/uL (0.0-0.87); Eosinophils % 1.3 % (0.00-10.9); Hematocrit 26.2 VOL% (42.0-52.0); Hemoglobin 8.1 GM/DL (14.0-18.0); Immature Granulocytes % 2.2 %; Immature Granulocytes Absolute 0.28 #; Lymphocytes # 1.4 10*3/uL (1.4-4.0); Lymphocytes % 11.2 % (21.2-54.2); Mean Corpuscular HGB Conc 30.9 GM/DL (32-36); Mean Corpuscular Volume 95.3 FL (87-102); Mean Platelet Volume 10.9 FL (9.6-12.0); Monocytes % 8.3 % (1.7-12.7); Neutrophils % 76.8 % (38.7-73.9); Platelet Count 211 T/CUMM (130-400); Red Blood Count 2.75 MC/CUMM (3.8-5.5); Red Cell Distribution Width 13.2 % (9.3-17.3); White Blood Count 12.5 T/CUMM (4-12)
[2020-08-24 06:47] LABS: Alanine Aminotransferase < 6 U/L (16-61); Albumin 1.7 G/DL (3.4-5.0); Alkaline Phosphatase 110 U/L (45-117); Aspartate Amino Transferase 6 U/L (0-37); Blood Urea Nitrogen 7 MG/DL (7-18); Carbon Dioxide 21 MMOL/L (21-32); Estimated Glom Filtration Rate 179 ML/MIN; Glucose 239 MG/DL (74-106); Osmolality,Calculated 271.4 MOS/KG (273-304); Potassium 3.5 MMOL/L (3.5-5.1); Sodium 133 MMOL/L (136-145); Total Protein 6.5 G/DL (6.4-8.3)
[2020-08-24 06:51] LABS: Eosinophils 1 % (0-10); Lymphocytes 7 % (20-55); Platelet Estimate Normal; Segmented Neutrophils 79 % (50-85); Total Cells Counted 100
[2020-08-24 06:52] LABS: Hypochromasia Slight
[2020-08-24] MEDS: ENOXAPARIN 40 MG/0.4 ML SYRINGE SUBCUT SCH (08:27)
[2020-08-24] MEDS: POTASSIUM CHLORIDE 20 MEQ PACK PO SCH ×2 (08:27→09:07)
[2020-08-24] MEDS: PANTOPRAZOLE 40 MG TABLET PO SCH (08:27)
[2020-08-24] MEDS: INSULIN NPH/REGULAR 70/30 100 UNIT/ML SUBCUT SCH ×2 (08:28→16:48)
[2020-08-24] MEDS: SODIUM HYPOCHLORITE 0.25% IRRIG 473 ML BOTTLE TOP SCH (09:30)
[2020-08-24] MEDS: FERRIC GLUCONATE COMPLEX 125 MG in SODIUM CHLORIDE 0.9% 100 ML IV SCH (09:35)
[2020-08-25] MEDS: INSULIN LISPRO 100 UNIT/ML SUBCUT SCH ×6 (01:02→20:30)
[2020-08-25] MEDS: ceFAZolin 2,000 MG in PREMIX 1 EACH IV SCH ×4 (03:55→20:26)
[2020-08-25 05:03] LABS: Basophils % 0.2 % (0.0-0.8); Eosinophils # 0.2 10*3/uL (0.0-0.87); Eosinophils % 1.9 % (0.00-10.9); Hematocrit 26.2 VOL% (42.0-52.0); Hemoglobin 7.8 GM/DL (14.0-18.0); Immature Granulocytes % 0.8 %; Immature Granulocytes Absolute 0.09 #; Lymphocytes # 1.6 10*3/uL (1.4-4.0); Lymphocytes % 13.8 % (21.2-54.2); Mean Corpuscular HGB Conc 29.8 GM/DL (32-36); Mean Corpuscular Volume 96.3 FL (87-102); Mean Platelet Volume 11.1 FL (9.6-12.0); Neutrophils % 74.3 % (38.7-73.9); Platelet Count 248 T/CUMM (130-400); Red Blood Count 2.72 MC/CUMM (3.8-5.5); Red Cell Distribution Width 13.3 % (9.3-17.3); White Blood Count 11.2 T/CUMM (4-12)
[2020-08-25 05:12] LABS: Calcium 8.7 MG/DL (8.5-10.1); Potassium 3.2 MMOL/L (3.5-5.1)
[2020-08-25 05:26] LABS: Hypochromasia 2+; Lymphocytes 18 % (20-55); Microcytosis 1+; Platelet Estimate Adequate; Segmented Neutrophils 73 % (50-85); Total Cells Counted 100
[2020-08-25] MEDS ORDERED: fentaNYL 100 MCG/2 ML VIAL ONE (07:01)
[2020-08-25] MEDS ORDERED: KETAMINE 500 MG/10 ML VIAL ONE (07:01)
[2020-08-25] MEDS ORDERED: MIDAZOLAM 2 MG/2 ML VIAL ONE ×2 (07:01→07:32)
[2020-08-25] MEDS ORDERED: propofoL 200 MG/20 ML VIAL IV ONE (07:04)
[2020-08-25] MEDS ORDERED: SODIUM CHLORIDE 0.9% 250 ML IV ONE (07:04)
[2020-08-25] MEDS ORDERED: LIDOCAINE 2% 5 ML VIAL ONE (07:04)
[2020-08-25] MEDS ORDERED: BUPIVACAINE MPF 0.25% 30 ML VIAL ONE (07:07)
[2020-08-25] MEDS ORDERED: LIDOCAINE 1% 20 ML VIAL ONE (07:07)
[2020-08-25] MEDS ORDERED: SODIUM CHLORIDE 0.9% 250 ML IV SCH (07:30)
[2020-08-25] MEDS ORDERED: ONDANSETRON 4 MG/2 ML VIAL ONE (07:38)
[2020-08-25] MEDS ORDERED: PHENYLEPHRINE 1 MG/10 ML SYRINGE IV ONE (07:53)
[2020-08-25] MEDS: INSULIN NPH/REGULAR 70/30 100 UNIT/ML SUBCUT SCH ×2 (10:13→16:38)
[2020-08-25] MEDS: ENOXAPARIN 40 MG/0.4 ML SYRINGE SUBCUT SCH (10:26)
[2020-08-25] MEDS: PANTOPRAZOLE 40 MG TABLET PO SCH (10:37)
[2020-08-25] MEDS: SODIUM HYPOCHLORITE 0.25% IRRIG 473 ML BOTTLE TOP SCH (11:15)
[2020-08-25] MEDS: POTASSIUM CHLORIDE 20 MEQ PACK PO SCH (11:15)
[2020-08-25] MEDS: FERRIC GLUCONATE COMPLEX 125 MG in SODIUM CHLORIDE 0.9% 100 ML IV SCH (12:07)
[2020-08-26] MEDS: INSULIN LISPRO 100 UNIT/ML SUBCUT SCH ×7 (00:02→23:52)
[2020-08-26] MEDS: ceFAZolin 2,000 MG in PREMIX 1 EACH IV SCH ×4 (04:47→20:10)
[2020-08-26] MEDS: ACETAMINOPHEN 325 MG TABLET PO PRN ×2 (04:48→09:29)
[2020-08-26 05:38] LABS: Basophils % 0.2 % (0.0-0.8); Eosinophils # 0.2 10*3/uL (0.0-0.87); Eosinophils % 1.5 % (0.00-10.9); Hemoglobin 8.1 GM/DL (14.0-18.0); Immature Granulocytes % 1.1 %; Immature Granulocytes Absolute 0.15 #; Lymphocytes # 1.8 10*3/uL (1.4-4.0); Lymphocytes % 13.3 % (21.2-54.2); Mean Corpuscular Volume 97.8 FL (87-102); Mean Platelet Volume 10.4 FL (9.6-12.0); Monocytes % 8.5 % (1.7-12.7); Neutrophils % 75.4 % (38.7-73.9); Platelet Count 294 T/CUMM (130-400); Red Blood Count 2.76 MC/CUMM (3.8-5.5); Red Cell Distribution Width 13.5 % (9.3-17.3); White Blood Count 13.2 T/CUMM (4-12)
[2020-08-26 05:57] LABS: Calcium 9.1 MG/DL (8.5-10.1)
[2020-08-26 06:00] LABS: Band Neutrophils 1 % (0-10); Eosinophils 3 % (0-10); Hypochromasia Slight; Lymphocytes 9 % (20-55); Platelet Estimate Normal; Segmented Neutrophils 80 % (50-85); Total Cells Counted 100
[2020-08-26] MEDS: SODIUM HYPOCHLORITE 0.25% IRRIG 473 ML BOTTLE TOP SCH (08:20)
[2020-08-26] MEDS: POTASSIUM CHLORIDE 20 MEQ PACK PO SCH (09:29)
[2020-08-26] MEDS: ENOXAPARIN 40 MG/0.4 ML SYRINGE SUBCUT SCH (09:29)
[2020-08-26] MEDS: INSULIN NPH/REGULAR 70/30 100 UNIT/ML SUBCUT SCH ×2 (09:30→15:52)
[2020-08-26] MEDS: FERRIC GLUCONATE COMPLEX 125 MG in SODIUM CHLORIDE 0.9% 100 ML IV SCH (10:18)
[2020-08-26] MEDS ORDERED: POTASSIUM CHLORIDE 20 MEQ TABLET PO PRN (13:03)
[2020-08-26] MEDS: POTASSIUM CHLORIDE RIDER 10 MEQ in PREMIX 1 EACH IV PRN ×2 (14:05→15:25)
[2020-08-27] MEDS: ceFAZolin 2,000 MG in PREMIX 1 EACH IV SCH ×4 (02:29→21:23)
[2020-08-27] MEDS: INSULIN LISPRO 100 UNIT/ML SUBCUT SCH ×5 (04:26→21:22)
[2020-08-27 05:54] LABS: Basophils % 0.4 % (0.0-0.8); Eosinophils # 0.2 10*3/uL (0.0-0.87); Eosinophils % 1.7 % (0.00-10.9); Hematocrit 25.5 VOL% (42.0-52.0); Hemoglobin 7.6 GM/DL (14.0-18.0); Immature Granulocytes % 0.9 %; Immature Granulocytes Absolute 0.09 #; Lymphocytes # 1.2 10*3/uL (1.4-4.0); Lymphocytes % 11.8 % (21.2-54.2); Mean Corpuscular HGB Conc 29.8 GM/DL (32-36); Mean Platelet Volume 10.5 FL (9.6-12.0); Monocytes % 5.7 % (1.7-12.7); Neutrophils % 79.5 % (38.7-73.9); Platelet Count 289 T/CUMM (130-400); Red Blood Count 2.63 MC/CUMM (3.8-5.5); Red Cell Distribution Width 13.3 % (9.3-17.3); White Blood Count 9.9 T/CUMM (4-12)
[2020-08-27 06:21] LABS: Calcium 8.9 MG/DL (8.5-10.1); Hypochromasia 2+; Lymphocytes 15 % (20-55); Microcytosis 1+; Osmolality,Calculated 274.1 MOS/KG (273-304); Ovalocytes Slight; Platelet Estimate Adequate; Potassium 3.1 MMOL/L (3.5-5.1); Segmented Neutrophils 81 % (50-85); Total Cells Counted 100
[2020-08-27] MEDS: FERRIC GLUCONATE COMPLEX 125 MG in SODIUM CHLORIDE 0.9% 100 ML IV SCH (09:12)
[2020-08-27] MEDS: INSULIN NPH/REGULAR 70/30 100 UNIT/ML SUBCUT SCH ×2 (09:13→16:33)
[2020-08-27] MEDS: SODIUM HYPOCHLORITE 0.25% IRRIG 473 ML BOTTLE TOP SCH (09:13)
[2020-08-27] MEDS: ENOXAPARIN 40 MG/0.4 ML SYRINGE SUBCUT SCH (09:14)
[2020-08-27] MEDS ORDERED: SODIUM CHLORIDE 0.9% 1,000 ML IV PRN (10:08)
[2020-08-27] MEDS: POTASSIUM CHLORIDE 20 MEQ PACK PO PRN ×4 (14:23→22:58)
[2020-08-28] MEDS: INSULIN LISPRO 100 UNIT/ML SUBCUT SCH ×6 (00:18→20:22)
[2020-08-28] MEDS: ceFAZolin 2,000 MG in PREMIX 1 EACH IV SCH ×4 (02:31→20:23)
[2020-08-28 05:35] LABS: Basophils % 0.2 % (0.0-0.8); Eosinophils # 0.2 10*3/uL (0.0-0.87); Eosinophils % 1.8 % (0.00-10.9); Hematocrit 26.5 VOL% (42.0-52.0); Hemoglobin 8.1 GM/DL (14.0-18.0); Immature Granulocytes % 0.7 %; Immature Granulocytes Absolute 0.06 #; Lymphocytes # 1.2 10*3/uL (1.4-4.0); Lymphocytes % 13.1 % (21.2-54.2); Mean Corpuscular HGB Conc 30.6 GM/DL (32-36); Mean Corpuscular Volume 97.1 FL (87-102); Mean Platelet Volume 11.1 FL (9.6-12.0); Neutrophils % 77.2 % (38.7-73.9); Platelet Count 291 T/CUMM (130-400); Red Blood Count 2.73 MC/CUMM (3.8-5.5); Red Cell Distribution Width 13.6 % (9.3-17.3)
[2020-08-28 06:04] LABS: Potassium 4.5 MMOL/L (3.5-5.1)
[2020-08-28] MEDS: INSULIN NPH/REGULAR 70/30 100 UNIT/ML SUBCUT SCH ×2 (08:54→16:27)
[2020-08-28] MEDS ORDERED: LACTATED RINGERS 1,000 ML IV SCH (09:30)
[2020-08-28] MEDS ORDERED: fentaNYL 100 MCG/2 ML VIAL ONE (09:36)
[2020-08-28] MEDS ORDERED: MIDAZOLAM 2 MG/2 ML VIAL ONE (09:36)
[2020-08-28] MEDS ORDERED: ONDANSETRON 4 MG/2 ML VIAL ONE (10:36)
[2020-08-28] MEDS ORDERED: SEVOFLURANE 1 UNIT/15 MINUTE INH ONE (10:45)
[2020-08-28] MEDS: FERRIC GLUCONATE COMPLEX 125 MG in SODIUM CHLORIDE 0.9% 100 ML IV SCH (12:26)
[2020-08-28] MEDS: SODIUM HYPOCHLORITE 0.25% IRRIG 473 ML BOTTLE TOP SCH (12:27)
[2020-08-29] MEDS: INSULIN LISPRO 100 UNIT/ML SUBCUT SCH ×6 (00:04→21:09)
[2020-08-29] MEDS: ceFAZolin 2,000 MG in PREMIX 1 EACH IV SCH ×3 (03:51→16:11)
[2020-08-29 05:17] LABS: Basophils % 0.2 % (0.0-0.8); Eosinophils # 0.1 10*3/uL (0.0-0.87); Eosinophils % 1.4 % (0.00-10.9); Hematocrit 25.5 VOL% (42.0-52.0); Hemoglobin 7.8 GM/DL (14.0-18.0); Immature Granulocytes % 0.6 %; Immature Granulocytes Absolute 0.06 #; Lymphocytes # 1.2 10*3/uL (1.4-4.0); Lymphocytes % 12.7 % (21.2-54.2); Mean Corpuscular HGB Conc 30.6 GM/DL (32-36); Mean Corpuscular Volume 97.3 FL (87-102); Mean Platelet Volume 10.3 FL (9.6-12.0); Monocytes % 5.7 % (1.7-12.7); Neutrophils % 79.4 % (38.7-73.9); Platelet Count 285 T/CUMM (130-400); Red Blood Count 2.62 MC/CUMM (3.8-5.5); Red Cell Distribution Width 13.7 % (9.3-17.3); White Blood Count 9.3 T/CUMM (4-12)
[2020-08-29 05:38] LABS: Calcium 8.6 MG/DL (8.5-10.1); Potassium 3.7 MMOL/L (3.5-5.1)
[2020-08-29] MEDS: INSULIN NPH/REGULAR 70/30 100 UNIT/ML SUBCUT SCH ×2 (08:07→16:42)
[2020-08-29] MEDS: SODIUM HYPOCHLORITE 0.25% IRRIG 473 ML BOTTLE TOP SCH (08:08)
[2020-08-29] MEDS: FERROUS SULFATE 325 MG TABLET PO SCH (16:12)
[2020-08-29] MEDS: ACETAMINOPHEN 325 MG TABLET PO PRN (16:14)
[2020-08-30] MEDS: INSULIN LISPRO 100 UNIT/ML SUBCUT SCH ×6 (00:23→20:50)
[2020-08-30] MEDS: ceFAZolin 2,000 MG in PREMIX 1 EACH IV SCH ×3 (00:24→17:05)
[2020-08-30 07:03] LABS: Basophils % 0.1 % (0.0-0.8); Eosinophils # 0.1 10*3/uL (0.0-0.87); Eosinophils % 1.1 % (0.00-10.9); Hematocrit 27.4 VOL% (42.0-52.0); Immature Granulocytes % 0.5 %; Immature Granulocytes Absolute 0.06 #; Lymphocytes # 1.3 10*3/uL (1.4-4.0); Lymphocytes % 11.6 % (21.2-54.2); Mean Corpuscular HGB Conc 29.2 GM/DL (32-36); Mean Corpuscular Volume 100.4 FL (87-102); Mean Platelet Volume 10.4 FL (9.6-12.0); Monocytes % 5.3 % (1.7-12.7); Neutrophils % 81.4 % (38.7-73.9); Platelet Count 296 T/CUMM (130-400); Red Blood Count 2.73 MC/CUMM (3.8-5.5); Red Cell Distribution Width 13.5 % (9.3-17.3); White Blood Count 10.9 T/CUMM (4-12)
[2020-08-30] MEDS: SODIUM HYPOCHLORITE 0.25% IRRIG 473 ML BOTTLE TOP SCH (08:22)
[2020-08-30] MEDS: INSULIN NPH/REGULAR 70/30 100 UNIT/ML SUBCUT SCH ×2 (08:22→17:05)
[2020-08-30] MEDS: FERROUS SULFATE 325 MG TABLET PO SCH ×2 (08:23→17:05)
[2020-08-30 08:40] LABS: Calcium 9.4 MG/DL (8.5-10.1); Osmolality,Calculated 272.1 MOS/KG (273-304); Potassium 3.4 MMOL/L (3.5-5.1)
[2020-08-31] MEDS: INSULIN LISPRO 100 UNIT/ML SUBCUT SCH ×6 (00:48→20:36)
[2020-08-31] MEDS: ceFAZolin 2,000 MG in PREMIX 1 EACH IV SCH ×3 (01:07→17:16)
[2020-08-31] MEDS: FERROUS SULFATE 325 MG TABLET PO SCH ×2 (08:27→17:24)
[2020-08-31] MEDS: INSULIN NPH/REGULAR 70/30 100 UNIT/ML SUBCUT SCH ×2 (08:27→17:16)
[2020-08-31] MEDS: SODIUM HYPOCHLORITE 0.25% IRRIG 473 ML BOTTLE TOP SCH (08:28)
[2020-08-31] MEDS ORDERED: SODIUM CHLOR 0.9% KCL 20 MEQ 20 MEQ/1,000 ML BAG IV SCH (10:00)
[2020-09-01] MEDS: ceFAZolin 2,000 MG in PREMIX 1 EACH IV SCH ×3 (00:31→17:55)
[2020-09-01] MEDS: INSULIN LISPRO 100 UNIT/ML SUBCUT SCH ×7 (00:31→23:47)
[2020-09-01 06:13] LABS: Basophils % 0.4 % (0.0-0.8); Eosinophils # 0.1 10*3/uL (0.0-0.87); Eosinophils % 1.8 % (0.00-10.9); Hematocrit 25.8 VOL% (42.0-52.0); Hemoglobin 7.6 GM/DL (14.0-18.0); Immature Granulocytes % 0.4 %; Immature Granulocytes Absolute 0.03 #; Lymphocytes # 1.4 10*3/uL (1.4-4.0); Lymphocytes % 20.8 % (21.2-54.2); Mean Corpuscular HGB Conc 29.5 GM/DL (32-36); Mean Platelet Volume 10.1 FL (9.6-12.0); Monocytes % 5.3 % (1.7-12.7); Neutrophils % 71.3 % (38.7-73.9); Platelet Count 261 T/CUMM (130-400); Red Blood Count 2.58 MC/CUMM (3.8-5.5); Red Cell Distribution Width 13.2 % (9.3-17.3); White Blood Count 6.8 T/CUMM (4-12)
[2020-09-01 06:34] LABS: Calcium 8.6 MG/DL (8.5-10.1); Osmolality,Calculated 279.7 MOS/KG (273-304); Potassium 4.1 MMOL/L (3.5-5.1)
[2020-09-01] MEDS: INSULIN NPH/REGULAR 70/30 100 UNIT/ML SUBCUT SCH ×2 (08:15→17:56)
[2020-09-01] MEDS: FERROUS SULFATE 325 MG TABLET PO SCH ×2 (08:18→17:55)
[2020-09-01] MEDS: SODIUM HYPOCHLORITE 0.25% IRRIG 473 ML BOTTLE TOP SCH ×2 (08:20→11:30)
[2020-09-02] MEDS: ceFAZolin 2,000 MG in PREMIX 1 EACH IV SCH ×2 (00:07→09:58)
[2020-09-02] MEDS: INSULIN LISPRO 100 UNIT/ML SUBCUT SCH ×3 (04:11→12:39)
[2020-09-02] MEDS: INSULIN NPH/REGULAR 70/30 100 UNIT/ML SUBCUT SCH (09:58)
[2020-09-02] MEDS: FERROUS SULFATE 325 MG TABLET PO SCH (09:59)
[2020-09-02] MEDS: SODIUM HYPOCHLORITE 0.25% IRRIG 473 ML BOTTLE TOP SCH (11:37)
[2020-09-02 11:57] VITALS: BP 97/60
== END 2020-09-02 12:54 | DRG 617 ==
LOC: EDUNIT# → EDBD → N.ED 00:13 → N.EDINP 01:40 → SUATTDRO 01:40 → N.EDINP 16:40 → N.ICU 17:50 → N.5E 08-21 13:33
PROVIDERS: ADMIT Internal Medicine; ATTEND Internal Medicine